=== PATIENT | female | born 1975 | race Caucasian/White ===

== ENCOUNTER 2017-10-06 23:17 | Emergency (ER) | payer OTHER ==
[~2017-10-06] VITALS: Ht 167.6 cm; Wt 94.8 kg
[2017-10-06] MEDS ORDERED: METOPROLOL SUCC25 MG PO (23:38)
== END 2017-10-07 01:26 | disposition home or self-care (01) ==
LOC: ED 23:17
DX: K91.840 Postprocedural hemorrhage of a digestive system organ or structure following a digestive system procedure (principal); I10 Essential (primary) hypertension; E11.9 Type 2 diabetes mellitus without complications; F17.200 Nicotine dependence, unspecified, uncomplicated; Z91.030 Bee allergy status; Z88.0 Allergy status to penicillin; Z88.1 Allergy status to other antibiotic agents; Z79.899 Other long term (current) drug therapy; Z88.2 Allergy status to sulfonamides
CPT/HCPCS: 36415; 85025; 85610; 85730; 99283

== ENCOUNTER 2020-10-03 18:23 | Observation (INO) | payer OTHER ==
[~2020-10-03] VITALS: Ht 167.6 cm; Wt 105.5 kg
[~2020-10-03 18:23] MED LIST: METOPROLOL SUCC25 MG PO
[2020-10-03] MEDS ORDERED: SILVER SULFADIA50 GM (19:15)
--- NOTE | 2020-10-04 00:42 | NUR ---
PT ARRIVED AT 2356. SHE IS A&O, WITH VS WNL. IS AT BEDSIDE. COMPLETED ADMISSION HX WITH PT. PT NPO AT THIS TIME AND HAS SWABS FOR DRY MOUTH. SHE HAS A BLOUS INFUSING AT THIS TIME. PT DENIES FURTHER NEEDS. CALL LIGHT IS CLOSE.
--- NOTE | 2020-10-04 00:45 | NUR ---
SCHOOL SECRETARYALFREDO NEWTON IN ROOM AND ADMITTING pt, VSS. DR ROSARIO IN ROOM COMPLETING ASSESSMENT. VERBAL ORDER READ BACK FROM DR ROSARIO TO START X1 LITER BOLUS OF LR AND INFUSE OVER 1 HOUR. BOLUS INFUSING, IV SITE WNL. BRISK BLOOD RETURN NOTED. pt REPORTS TOLERABLE 5-6/10 PAIN, DENIES NEED FOR PAIN MEDICATION OF ANY KIND. DENIES NAUSEA. BOWEL TONES ACTIVE, pt REMAINS NPO. BED MADE FOR , CALL LIGHT IN REACH OF pt. CONSENT SIGNATURE WITNESSED AND ON FRONT OF CHART. NO FURTHER NEEDS, CALL LIGHT IN REACH.
--- NOTE | 2020-10-04 01:30 | NUR ---
RT KB IN ROOM WITH pt COMPLETING PRE-OP EKG.
--- NOTE | 2020-10-04 04:14 | NUR ---
IN ROOM TO ROUND ON pt, ASSESSMENT COMPLETE. NO NEW BLEEDING NOTED FROM PREVIOUS PLACED GAUZE, WILL CONTINUE TO MONITOR. NO NEW SHADOWING TO ABD MIDLINE DRESSING. IV SITE WNL, IV FLUIDS CONTINUE TO INFUSE PER MD ORDERS. CPOX IN PLACE, 2LNC ON, O2 SAT MID TO UPPER 90'S, HR 60'S. pt AWOKE BRIEFLY TO VOICE, DENIES NEEDS OR CONCERNS AT THIS TIME. LIAISON PLANNER BUTTON WITHIN REACH. CALL LIGHT IN REACH.
--- NOTE | 2020-10-04 04:22 | NUR ---
pt RESTING QUIETLY IN BED WITH EYES CLOSED, RR EVEN AND UNLABORED. NO DISTRESS NOTED, IV FLUIDS INFUSING PER MD ORDERS. REMAINS IN ROOM. CALL LIGHT IN REACH.
--- NOTE | 2020-10-04 06:39 | NUR ---
IN TO ASSIST PT WITH PRE OP WIPEDOWN, PT UP TO VOID, BED LINENS CHANGED, PT REMOVING JEWELERY AT THIS TIME, NO FURTHER NEEDS
--- NOTE | 2020-10-04 06:55 | NUR ---
SCHEDULED IV ABX INFUSING PER MD ORDERS, IV SITE WNL. NO FURTHER NEEDS, CALL LIGHT IN REACH. ALSO IN ROOM.
--- NOTE | 2020-10-04 07:00 | NUR ---
pt REPORTS ALLERGY TO RANITIDINE, CAUSING "THROAT TO CLOSE". pt THINKS SHE HAS TAKEN PEPCID BEFORE AND HAS BEEN FINE. RANITIDINE ADDED TO ALLERGY LIST BY ANALYSIS SPECIALISTALFREDO NEWTON, DELORIS YADAV TO CLARIFY POSSIBLE ALLERGY WITH PHARMACY AND MD.
--- NOTE | 2020-10-04 07:30 | NUR ---
REPORT RECEIVED FROM MARCO MEAT GRADER RN. PT REPORTEDLY ALLERGIC TO RANITIDINE AND IS CURRENTLY SCHEDULED TO HAVE FAMITODINE TODAY. WILL CLARIFY W/ PHARMACY.
--- NOTE | 2020-10-04 08:00 | NUR ---
PATIENT AWAKE IN BED, SCD PROVIDED AND PLACED ON LEGS. CALL LIGHT IN REACH
--- NOTE | 2020-10-04 08:30 | NUR ---
PT WIPEDOWN COMPLETED AND GOWN/LINENS CHANGED. PRE OP CHECKLIST COMPLETED BY EXCHANGE CONSULTANT. SCD'S ON. PT AWAITING SURGERY.
--- NOTE | 2020-10-04 09:00 | NUR ---
PT REFUSED PEPCID THIS AM D/T BEING WORRIED OF POTENTIAL REACTION SHE HAS HAD ANAPHYLACTIC REACTION TO RANITIDINE IN THE PAST. MEDICATION HELD.
--- NOTE | 2020-10-04 09:30 | NUR ---
PT GIVEN HEPARIN INJECTION IN LLQ PRIOR TO DEPARTING FOR SURGERY W/ OBDULIA RN. PT VERBALIZED UNDERSTANDING OF NEED FOR MEDICATION. LR INFUSING ON STRAIGHT TUBING.
--- NOTE | 2020-10-04 11:59 | NUR ---
10/04/20 1159 Cassidy Erwin 1153 PATIENT ARRIVES TO PACU UNRESPONSIVE TO PAIN. ORAL AIRWAY IN PLACE. RESP EVEN AND UNLABORED, MASK AT 6 LITERS. 1157 PATIENT COUGH, REACHING FOR ORAL AIRWAY, AIRWAY REMOVED. MASK CONTINUED AT 6 LITERS. 1158 PATIENT PULLING AT OXYGEN MASK, HAS A DIFFICULT TIME FOLLOWING COMMANDS. RESP EVEN AND UNLABORED, SATS 100% ON OXYGEN. WILL REMOVE MASK.
--- NOTE | 2020-10-04 12:22 | NUR ---
ALFREDO YADAV INFORMED ME THAT PT IS IN SURGERY. WILL FOLLOW
--- NOTE | 2020-10-04 13:30 | NUR ---
Pt lives in [place] in an apartment with her spouse. She has 18 steps into her home. She works as a underwriter mortgage loan. Plans on dc to home with her spouse and he will be home until the 15 of October. They are financially sound per her spouse. Both deny any needs for dc.
--- NOTE | 2020-10-04 14:45 | NUR ---
ASSESSED PT AT 1415 FOR HOURLY POST OP VITALS AND PT WAS VERY DROWSY AND SLOW TO RESPOND. ONLY RESPONSIVE TO PAINFUL STIMULI, BP 116/55 (77), HR 63, RR 12, 97.7, SP02 SATS 97% ON ROOM AIR. PT UNABLE TO MOVE ARMS AND C/O NUMBNESS & TINGLING IN ARMS AND LEGS. PT ALSO C/O HEADACHE AND LEFT FACIAL DROOP NOTED. PUPILS ARE PERRLA. FILLING STATION LABORER JANIS AND DR ROSARIO NOTIFIED AND ENTERED ROOM. DR ROSARIO AFTER DOING FURTHER ASSESSMENT ORDERED 0.4 MG NARCAN WHICH WAS GIVEN. PT THEN MORE ALERT AND AWAKE W/IN 1 MIN OF RECEIVING NARCAN. NO LONGER HAS FACIAL DROOP, NOW SYMMETRIC. LENS ASSISTANT STRENGTH ARE EQUAL. PT NOW DENIES NUMBNESS & TINGLING IN HANDS, CONTINUES IN FEET. PT IS ORIENTED X4. STATES SHE FEELS "SORE AND DIZZY." REFUSING ANY TYLENOL OR IBUPROFEN AT THIS TIME FOR 5/10 PAIN. CALL LIGHT IN ROOM AND BACK TO BEDSIDE.
--- NOTE | 2020-10-04 15:30 | NUR ---
PATIENT AWAKE IN BED, IN ROOM. 2PA PATIENT TO BSC, TOLERATED WELL, BUT WAS A BIT DIZZY. LINENS CHANGED, CALL LIGHT IN REACH
--- NOTE | 2020-10-04 15:59 | NUR ---
CLARIFIED PATIENT FOOD PREFERENCES FOR DIETARY STAFF: PATIENT STATES HE DOES HAVE A SENSITIVITY TO GARLIC - IT UPSETS HER STOMACH. OTHERWISE, SHE PREFERS MORE OF A LOW-SODIUM, NO ADDED SUGAR DIET. SHE DOES NOT EAT MEAT, VERY SELDOM EATS EGGS, AND VERY LITTLE DAIRY. I MENTIONED THAT WE DO HAVE SALMON AND CHICKEN, THEN WAS INFORMED BY THE DIETARY STAFF THAT THE HERB CRAIG HAS GARLIC IN IT. LET PATIENT KNOW THAT WE ALSO HAVE SOY MILK AND ALMOND MILK IF SHE LIKES ANY OF THOSE. SHE DOES NOT HAVE MUCH OF AN APPETITE DUE TO HAVING SURGERY FOR APPENDICITIS THIS MORNING. LET DIETARY STAFF KNOW OF PATIENT PREFERENCES AND THAT THEY CAN HELP HER ORDER MEALS.
--- NOTE | 2020-10-04 16:00 | NUR ---
PT UP TO BSC TO VOID. LINENS CHANGED PT HAD EPISODE OF EMESIS 200 MLS WHICH CAUSED SMALL INCONTINENCE SHE REPORTS. PT BACK TO BED, REPORTS FEELING SOME ABD DISCOMFORT BUT IS REFUSING TYLENOL & IBUPROFEN, STATES SHE CAN HANDLE THIS PAIN AND DOES NOT WANT ANY MEDICATION. CALL LIGHT IN REACH AND STATES SHE WILL CALL FOR FURTHER NEEDS.
--- NOTE | 2020-10-04 18:15 | NUR ---
PT NAUSEA AND VOMETING AT THIS TIME, REFUSED ZOFRAN AT THIS TIME. PT CLEANED UP BRUSHED TEETH AND WILL KEEP AN EYE ON HER. PT IS FEELING BETTER AFTER BRUSHING TEETH.
--- NOTE | 2020-10-04 18:31 | NUR ---
ANSWERED CALL LIGHT, PATIENT HAS 300ML BILE IN EMESIS BAG. NEW GOWN AND PILLOWCASE PROVIDED. PATIENT BRUSHED TEETH AND USED MOUTHWASH. CALL LIGHT IN REACH, NO OTHER NEEDS AT THIS TIME
--- NOTE | 2020-10-04 19:39 | NUR ---
PT HAVING ANOTHER EPISODE OF 200 MLS BILE COLORED EMESIS, ALSO C/O OF RIGHT SHOULDER PAIN THAT IS PINPOINT AND DOES NOT RADIATE. PT ALSO DIZZY W/ MOVEMENT AND HAS HX OF VERTIGO. VITAL SIGNS ARE CURRENTLY STABLE. PT REFUSING ANTIEMETICS. VERIFIED W/ TELE PHARMACY THAT ZOFRAN IS IN DIFFERENT CLASS OF MEDICATIONS THAN PHENERGAN PT WAS FEARUL OF REACTION. PT STATES SHE IS OK WITH TAKING IV ZOFRAN. DR ROSARIO CALLED AND UPDATED ON ALL THE ABOVE. ORDERS TO CONTINUE TO MONITOR. PASSED ALONG IN REPORT TO MARCO AGRICULTURAL PRODUCE COMMISSION AGENT RN. PT OTHERWISE CONTINUES TO BE ALERT AND ORIENTED. SLIGHTLY SHAKY AT TIMES AFTER EMESIS. AT BEDSIDE PROVIDING COMFORT.
--- NOTE | 2020-10-04 20:00 | NUR ---
IN ROOM TO EDUCATE pt ON USE OF ZOFRAN MEDICATION. pt INITIALLY VERY HESITANT TO TAKE MEDICATION, RECENT EMESIS NOTED WITH SHIFT CHANGE. pt REPORTING RIGHT PECTORAL PAIN THAT IMPROVES WITH PUSHING ON BACK OF RIGHT SHOULDER BLADE. pt REPORTS THIS PAIN INTERFERRING WITH ABILITY TO TAKE DEEP BREATHS. ALFREDO MENDOZA UPDATED DR ROSARIO, PER ALFREDO YADAV MD FEELS PAIN IS RELATED TO GAS PAIN FROM SURGERY. pt AND FAMILY UPDATED ON CONVERSATION DAYSHIFT RN HAD WITH MD. HEAT PACK PROVIDED, pt REFUSES PRN PAIN MEDICATIONS. NO RESPIRATORY DISTRESS NOTED AT THIS TIME, OCCASSIONAL FACIAL GRIMACING NOTED. AFTER A LENGTHY DISCUSSION OF USE OF ZOFRAN, pt FINALLY AGREES TO TAKE MEDICATION, IN ROOM. pt STATES, "I NEED TO TELL YOU SOMETHING. 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 pt CONTINUES BY STATING, "I JUST DON'T WANT TO TAKE EXTRA MEDICATIONS AND HAVE ALL THESE CHEMICALS IN MY BODY AND REACTING". THERAPEUTIC COMMUNICATION PROVIDED ON RECOVERY, WILL CONTINUE TO MONITOR. CALL LIGHT IN REACH, LIABILITY CLAIMS EXAMINERALFREDO ATKINS.
--- NOTE | 2020-10-04 21:40 | NUR ---
ASSESSMENT COMPLETE, EVENING MEDICATIONS GIVEN, SEE EMAR. pt REFUSES IV PEPCID. IV ABX INFUSING PER MD ORDERS, SITE WNL. pt STATES, "I GOT SOME GOOD SLEEP AFTER YOU GAVE ME THAT ZOFRAN". pt DID NOT RATE PAIN ON PAIN SCALE, BUT REPORTS PAIN IS TOLERABLE. RR EVEN AND UNLABORED, NO DISTRESS NOTED. LAP SITES X3 WNL, STERI STRIPS IN PLACE WITH SCANT SEROSANGINEOUS SHADOWING. SCD'S IN PLACE, CALL LIGHT IN REACH. pt DENIES NEED TO VOID, WILL ALLOW TO REST AND MONITOR. REMAINS IN ROOM FOR EMOTIONAL SUPPORT.
--- NOTE | 2020-10-04 22:16 | NUR ---
IN TO GET VITALS, PT DENIES NEEDING TO VOID, SHE STATE SHE WANTS TO TRY LATER AND GET SOME REST, RN INFORMED, NO FURTHER NEEDS
--- NOTE | 2020-10-04 23:37 | NUR ---
IN TO PUT PT ON CPOX
--- NOTE | 2020-10-05 01:19 | NUR ---
pt RECENTLY UP TO VOID WITH HELP FROM CHRISTOPHER GONZALEZ. 300MLS OUTPUT NOTED PER DOCUMENT CONTROL CLERK, IN ROOM TO ASSESS. pt AWAKE AND RESTING IN BED, CPOX IN PLACE. O2 SAT 93% ON RA, HR WNL. pt REPORTS SHE FELT A LITTLE DIZZY WHEN VOIDING AND SHE REMINDED HERSELF ON IMPORTANCE OF MAKING SLOW POSITION CHANGES. DENIES DIZZINESS AT THIS TIME ONCE BACK IN BED. pt REPORTS TOLERABLE 6/10 PAIN IN ABD AND BILATERAL SHOULDER BLADES. NO RESPIRATORY DISTRESS NOTED, pt DECLINES NEED FOR PAIN MEDICATION. pt STATES, "I DIDN'T REALIZE JUST HOW MUCH YOU USE YOUR ABDOMINAL MUSCLES". EDUCATION PROVIDED ON USING IS AND SPLINTING ABD WHEN COUGHING, DEEP BREATHING, AND GETTING OOB, pt VERBALIZED UNDERSTANDING. SCD'S IN PLACE, pt DENIES FURTHER NEEDS. CALL LIGHT IN REACH, VSS.
--- NOTE | 2020-10-05 01:19 | NUR ---
IN TO GET PT UP TO VOID, AMT REPORTED TO RN, VITALS DONE, NO FURTHER NEEDS SCDS AND CPOX IN PLACE, ICE WATER REFILLED
--- NOTE | 2020-10-05 04:18 | NUR ---
NEW BAG IV FLUIDS HUNG AND INFUSING AT 75MLS/HR, SITE WNL. pt RESTING IN BED WITH EYES CLOSED, RR EVEN AND UNLABORED, RR APPROX 18. IV SITE WNL. ALSO IN ROOM, CALL LIGHT IN REACH.
--- NOTE | 2020-10-05 05:03 | NUR ---
VSS, pt AWOKE TO VOICE. DENIES NEED TO VOID AT THIS TIME, WILL RETURN BEFORE SHIFT CHANGE. ASSESSMENT COMPLETE, NO NEW CHANGES OR CONCERNS. pt REPORTS TOLERABLE 5/10 PAIN IN ABD, DENIES NEED FOR PAIN MEDICATIONS. LAP SITES X3 UNCHANGED SINCE START OF SHIFT. NO FURTHER NEEDS, CALL LIGHT IN REACH.
--- NOTE | 2020-10-05 05:47 | NUR ---
pt ANXIOUS AND VOICED CONCERNS REGARDING POST-OP AND RECOVERY, REPORTED TO SUPERVISOR ELECTRONIC TESTING OF HX OF METH USE 7+ YEARS AGO, EDUCATION AND THERAPEUTIC COMMUNICATION PROVIDED. EMESIS X1 AT SHIFT CHANGE, RESOLVED WITH ZOFRAN X1. NO ADDITIONAL EMESIS NOTED. PAIN TOLERABLE THROUGH SHIFT, 5-6/10 IN ABD, RADIATING TO RIGHT PECTORAL MUSCLE, DR ROSARIO AWARE. REFUSES PAIN MEDICATIONS OF ALL KIND. VSS, ON RA. IV FLUIDS AND IV ABX INFUSING PER MD ORDERS, SITE WNL. SBA TO BSC, pt AGREES TO WORK ON ADDITIONAL AMULATION TODAY, CALLS APPROPRIATELY. REGULAR DIET, ATE APPROX 30% OF DINNER, BOWEL TONES ACTIVE. VOIDING QS. IN ROOM AND ENCOURAGING TOWARDS pt.
--- NOTE | 2020-10-05 06:26 | NUR ---
SCHEDULED IV ABX INFUSING, IV SITE WNL. CPOX ALSO IN PLACE, O2 SAT 89-90%, 1LNC PLACED, O2 SATS SUSTAINING LOW TO MID 90'S. CALL LIGHT IN REACH.
--- NOTE | 2020-10-05 09:45 | NUR ---
MORNING ASSESSMENT COMPLETE. NO CHANGE TO X3 LAPSITES, STERI STRIPES IN PLACE. VSS. PT C/O 09/19 ABD PAIN YET REFUSING TYLENOL OR TORADOL. LUNG SOUNDS ARE CLEAR. BOWEL TONES ARE ACTIVE. PT IS TOLERATING REGULAR DIET MODERATELY WELL, DENIES NAUSEA AFTER BREAKFAST THIS AM. HEPARIN INJECTION GIVEN, THOUGH PT REFUSED PEPCID. WANTS TO GO HOME TODAY. EDUCATED THAT SHE WILL NEED TO BED OOB AND WALKING TODAY, THAT IT WILL STIMULATE BOWEL FUNCTION AND DECREASE RISK FOR PNEUMONIA POST OP. PT VERBALIZED UNDERSTANDING. UP TO BATHROOM W/ FWW TO VOID. BACK TO BED STATING SHE FEELS DIZZY AND LIGHTHEADED AND NOT READY TO WALK HALLS YET. BP STABLE. WILL CHECK BACK ABOUT WALK LATER.
--- NOTE | 2020-10-05 12:21 | NUR ---
TO BEDSIDE TO ADMISNTER PROTONIX. PT IS APREHENSIVE ABOUT TAKING MEDICAITON D/T PREVIOUS ALLERGIES TO OTHER PPI'S. WRITEN EDUCATION PROVIDED AND VERBAL EDUCATION PROVIDED. PT WOULD LIKE TO THINK ABOUT IT AND DECIDED LATER IF SHE WANTS TO TAKE MEDICAION. ALL QUESTIONS ANSWERED.
--- NOTE | 2020-10-05 14:02 | EKG ---
[facility] [address] [facility] [place], [place] [address] Signed Normal sinus rhythm Normal ECG No previous ECGs available Confirmed by ELIAN MCKEON DO ([id number]) on 10/05/2020 2:02:22 PM Electronically Signed By: ELIAN MCKEON DO 10/05/20 1402 PATIENT NAME: VERA ALCANTAR Electrocardiogram DATE OF : 75 PHYSICIAN: ELIAN MCKEON DO REPORT #: [id number] REPORT IS CONFIDENTIAL AND NOT TO BE RELEASED WITHOUT AUTHORIZATION
--- NOTE | 2020-10-05 15:00 | NUR ---
PT ENCOURAGED TO AMBULATED SEVERAL TIMES TODAY. OFFERED TYLENOL AND RELUCTANT TO TAKE ANY STATING "I REALLY DON'T WANT ANYMORE PILLS AND CHEMICALS IN MY BODY" THOUGH SHE REPORTS BEING IN 7/10 PAIN AND HAS BEEN RELUCTANT TO WALK D/T ABD PAIN. AFTER THOROUGH EDUCATION AND ENCOURAGEMENT, SHE WAS WILLING TO TAKE 1 500 MG TABLET INSTEAD OF THE FULL 1000 MG DOSE. PT REQUESTING TO WAIT 30 MIN TO WALK SO TYLENOL CAN KICK IN.
--- NOTE | 2020-10-05 16:30 | NUR ---
IN TO GO FOR WALK WITH PT WHO IS SITTING IN BED AND APPEARS MORE RELAXED AND PLEASANT THAN USUAL. WHEN ASKED IF THEY TYLENOL HELPED WITH HER PAIN, SHE STATES "NO IT JUST MADE ME FEEL MORE LOOPY AND ZONKED, I'M GLAD I DIDN'T TAKE THE FULL DOSE" EDUCATED PT THAT TYLENOL HAS NO SEDATING OR NARCOTIC COMPONENTS. PT STATES THAT SHE HAS REACTIONS TO MOST MEDICATIONS THIS WAY, "IT'S THE CHEMICALS IN THEM THAT TAKE IT OUT OF ME." PT WILLING TO TRY WALKING THE HALLS. UP W/ FWW, FOLLOWING W/ WHEELCHAIR. PT TOOK APPROX 30 MIN TO AMBULATE FROM ROOM DOWN TO 2 ROOMS AWAY AND BACK. SITTING UP WITH CHAIR, PT REPORTS SHE IS MORE COMFORTABLE AT REST. PT DID C/O MULTIPLE DIFFERENT PAINS INCLUDING SHARP ABD PAIN, EDUCATED AGAIN THAT SHARP PAINS CAN BE RELATED TO GAS PAIN IN BOWELS AND THAT WALKING MORE FREQUENTLY WILL HELP STIMULATE BOWELS TO RELEASE GAS. PT EXHIBITED MINIMAL KNOWLEDGE, CONTINUE TO REINFORCE. SALINE LOCKED. CALL LIGHT IN REACH. DINNER ORDERED.
--- NOTE | 2020-10-05 18:21 | NUR ---
PATIENT UP IN CHAIR FOR DINNER. VITALS AND I&OS CHARTED. IN ROOM. PATIENT HAS NO VOID FOR LAST FEW HOURS, RN AWARE. CALL LIGHT IN REACH
--- NOTE | 2020-10-05 19:00 | NUR ---
PT UP TO BATHROOM WITH ASSISTANCE OF TOOL PUSHER TO VOID 400 MLS. UP TO WALK SEGURA 1 PA W/ FWW. UPDATED DR. ROSARIO ON PT DAY AND CURRENT STATUS. WILL CONTINUE TO ENCOURAGE PT TO AMBULATE SEGURA AND TAKE TYLENOL AND NEEDED FOR ABD PAIN AND ACTIVITY.
--- NOTE | 2020-10-05 19:15 | NUR ---
SHIFT REPORT RECEIVED FROM DAYSFLFT ALFREDO YADAV AT BEDSIDE. pt UP AT DOORWAY AND AMBULATING WITH MARINE EXTENSION AGENT LISA, ALSO WITH pt. pt APPEARS TO BE IN GOOD MOOD AND JOKING. DR ROSARIO MADE AWARE OF pt's HX OF METH USE 7+YEARS AGO, NO NEW ORDERS.
--- NOTE | 2020-10-05 19:30 | NUR ---
TOOK PT UP TO AMBU IN THE SEGURA, FROM 112 [address] TO THE END OF THE LOWER RN STATION AND BACK, PT MADDISON WELL WITH MINIMAL DIZZYNESS, FOLLOWED WITH THE WHEELCHAIR IF NEEDED, PT BACK IN BED AT THIS TIME, ICE WATER PROVIDED, SCDS IN PLACE, NO FURTHER NEEDS
--- NOTE | 2020-10-05 20:39 | NUR ---
vital done, ice water filled
--- NOTE | 2020-10-05 21:15 | NUR ---
ASSESSMENT COMPLETE, VSS. pt A/OX4, REPORTS 6/10 DULL ACHY PAIN IN RIGHT SHOULDER/SHOULDER BLADE, STATING, "I THINK ALL THE VOMITING MADE ME TWIST OR PINCH SOMETHING". pt REPORTS 4/10 SHARP SUPERFICIAL PAIN NEAR UMBILICUS. NO DEFORMITIES NOTED IN EITHER LOCATION, 500 MG TYLENOL GIVEN. pt EDUCATED ON USE OF TORADOL, pt DECLINED. LAP SITES X3 WNL, STERI STRIPS IN PLACE, SCANT DRY SEROSANGUINEOUS SHADOWING. DENIES NAUSEA OR PASSING GAS, BOWEL TONES ACTIVE. CALL LIGHT IN REACH, IN ROOM.
--- NOTE | 2020-10-05 22:30 | NUR ---
pt RESTING QUIETLY IN BED, NO NEEDS VERBALIZED. CALL LIGHT IN REACH, RR EVEN AND UNLABORED.
--- NOTE | 2020-10-06 02:15 | NUR ---
pt RESTING IN BED WITH EYES CLOSED, RR EVEN AND UNLABORED. NO DISTRESS NOTED, CALL LIGHT IN REACH. ALSO IN ROOM, SLEEPING ON COUCH.
--- NOTE | 2020-10-06 06:12 | NUR ---
VSS, pt UP SBA WITH FWW TO VOID AND BACK IN BED. MOVES SLOW, STEADY ON FEET. FACIAL GRIMACING NOTED, pt REPORTS 7/10 ABD PAIN, TYLENOL OFFERED AND ACCEPTED. pt DECLINES FULL DOSE, SEE EMAR. ASSESSMENT DONE, FRESH WATER AT BEDSIDE. CALL LIGHT IN REACH. SCD'S ON.
--- NOTE | 2020-10-06 07:30 | NUR ---
Report received from Pita FUENTES. Pt visualized resting in bed with eyes closed, breathing even and unlabored, no needs identified at this time.
--- NOTE | 2020-10-06 08:46 | NUR ---
VITALS AND I&OS CHARTED. PATIENT SITTING UP FOR BREAKFAST.
--- NOTE | 2020-10-06 09:23 | NUR ---
Scheduled heparin administered, pt denies protonix at this time. She also states she is having pain but denies wanting any PRN medications, this RN suggested ambulation, ice pack, pt refuses these options. This RN encouraged pt to research and consider Toradol for potential use, pt agrees. Made plan for ambulation later in day. Bowel tones hypoactive. Steri strips intact. Pt states no needs, call light in reach
--- NOTE | 2020-10-06 10:15 | NUR ---
PATIENT CALLED FOR ASSISTANCE TO BR. SBA, PATIENT AMBULATED WELL, BUT APPREHENSIVE TO MOVE MUCH. THIS INFORMATION TECHNOLOGY ADVISOR ENCOURANGING PATIENT. PATIENT HAD SMALL SOFT BM, CHANGED GOWN, TALKED ABOUT A SHOWER TODAY. BACK TO BED, CALL LIGHT IN REACH
[2020-10-06] MEDS ORDERED: ACETAMINOPHEN500 MG PO (11:02)
--- NOTE | 2020-10-06 11:43 | HP ---
[facility] [address] [place], [place] [address] Signed ADMISSION DATE: 10/03/2020 REASON FOR ADMISSION: Acute appendicitis. HISTORY OF PRESENT ILLNESS: This obese (BMI of 37.5) 45-year-old white woman presented to the emergency room where she was evaluated by Dr. Mujica. She was found to have significant tenderness of the abdomen and evaluation included a CT scan which confirmed appendicitis. Some delay in obtaining laboratory studies was noted as there is a lab transition locally at the hospital. She was noted to have a white count of 15.6, platelets 294. Chem profile reasonably normal except for a potassium of 3.5. Her beta-hCG was negative. Urinalysis showed moderate blood, RBCs 5 to 10 per high-power field, white cells 0 to 3 and COVID PCR test negative. She is admitted for further evaluation and care. Her symptoms began yesterday last night and now is a bit more than 24 hours since her symptoms began. She had increased pain upon jarring of the abdomen. She has had nausea, but no vomiting and no diarrhea or fever or chills that she knows of. 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 PAST MEDICAL HISTORY: Includes hypertension, type 2 diabetes, history of stomach ulcer and "sciatica." The patient does smoke every day. SURGICAL HISTORY: Includes cholecystectomy, tonsillectomy and oral surgery. ALLERGIES: She has numerous listed allergies including beestings, penicillin (rash throat swelling, sulfa medication (fever and rash). Aloe vera, rash. Cephalexin, unknown symptoms. Diphenhydramine, throat swelling. Erythromycin, rash and vomiting. Lamictal, vomiting. Promethazine, psychotic episode 2018 and Geodon, also psychotic episode. SOCIAL HISTORY: She is and she is employed. They have no children. REVIEW OF SYSTEMS: She denies any shortness of breath or chest pain. She has pain and apparently has been refusing pain medication in the emergency room. She has no hematemesis or blood per Electronically Signed By: PAVEL ROSARIO MD 10/06/20 1143 PATIENT NAME: VERA ALCANTAR HISTORY AND PHYSICAL DATE OF : 75 REPORT #: [id number] PHYSICIAN: PAVEL ROSARIO MD PCP: David Denson DO REPORT IS CONFIDENTIAL AND NOT TO BE RELEASED WITHOUT AUTHORIZATION [facility] [address] [place], [place] [address] Signed rectum. PHYSICAL EXAMINATION: GENERAL: This is an obese white woman who looks to be in moderate discomfort. HEENT: Mucous membranes are dry. Trachea is midline. CHEST: Clear. HEART: Regular without murmur. ABDOMEN: Broad and obese. She has generalized tenderness throughout most dominantly in the right lower quadrant where there are peritoneal signs. EXTREMITIES: Show no clubbing, cyanosis, or edema. LABORATORY STUDIES: Show white count of 15.6, hematocrit 41.6, platelets 294,000. Urinalysis as previously described. I have reviewed the CT scan in detail. This does show probable appendicitis, but no evidence of abscess or perforation. There does appear to be a 24 mm low-density nodule of the left adrenal gland consistent with an adenoma. The appendix is noted to be thick walled and dilated located in the iliac fossa with no evidence of perforation. The left ovary has a 3 cm cyst. The right ovary has 2 cm cyst. ASSESSMENT: The patient has acute appendicitis. Discussed with the patient and her the pathophysiology of this problem and recommendation of treatment to include appendectomy, preferred by laparoscopic approach. It is quite notable that the patient does have episodes of left chest pain from [id number] and left arm pain, though she is uncertain if this is able to be distinguished from her well-known and established underlying reflux disease. We will get an EKG nevertheless. She needs additional fluid resuscitation as her mucous membranes are slightly dry. Antibiotic clindamycin and Flagyl will be initiated based on her allergy profile prohibiting penicillin and even cephalosporins based on her allergy profile. The risk of bleeding, infection, need for open procedure and other unforeseen complications including cardiopulmonary problems was reviewed in detail. She and her understand and wished to proceed. As it is well past midnight at this point, we will continue with efforts at fluid resuscitation, pain control, anticipating operative intervention tomorrow. Electronically Signed By: PAVEL ROSARIO MD 10/06/20 1143 PATIENT NAME: VERA ALCANTAR HISTORY AND PHYSICAL DATE OF : 75 REPORT #: [id number] PHYSICIAN: PAVEL ROSARIO MD PCP: David Denson DO REPORT IS CONFIDENTIAL AND NOT TO BE RELEASED WITHOUT AUTHORIZATION [facility] [address] [place], [place] [address] Signed Pavel Rosario MD JM/MODL /[id number] cc: Dr. Pavel Mujica Copies: ~ Electronically Signed By: PAVEL ROSARIO MD 10/06/20 1143 PATIENT NAME: VERA ALCANTAR HISTORY AND PHYSICAL DATE OF : 75 REPORT #: [id number] PHYSICIAN: PAVEL ROSARIO MD PCP: David Denson DO REPORT IS CONFIDENTIAL AND NOT TO BE RELEASED WITHOUT AUTHORIZATION
--- NOTE | 2020-10-06 11:43 | OR ---
[facility] [address], [place] [address] Signed DATE OF OPERATION: 10/04/2020 SURGEON: Blessing Rosario MD PREOPERATIVE DIAGNOSES: 1. Acute appendicitis. 2. Morbid obesity. POSTOPERATIVE DIAGNOSES: 1. Acute appendicitis. 2. Morbid obesity. PROCEDURE: Laparoscopic appendectomy and lysis of adhesions. ANESTHESIA: General endotracheal, Carter Radha, AMBULATORY CARE COORDINATOR and local 20 mL of 0.25% Marcaine with epinephrine. INDICATION: This 45-year-old white woman is rather morbidly obese, though has lost 200 pounds over time due to dietary management and so forth. She has had cholecystectomy in the past. She presented to the hospital yesterday with severe right lower abdominal pain consistent with appendicitis. She was admitted late in the evening after CT scan confirmed appendicitis. She has been given intravenous antibiotic clindamycin and Flagyl based on her allergy profile and is now to undergo appendectomy preferred by laparoscopic approach. The risk of bleeding, infection, need for open procedure and other unforeseen complications was reviewed in detail. She understands and wished to proceed. FINDINGS: She was quite morbidly obese still but appendectomy was performed without complication. The appendix was quite markedly inflamed but without sign of actual perforation. DESCRIPTION OF PROCEDURE: The patient was brought to the operating room, and given a general endotracheal anesthetic. Preoperative antibiotic clindamycin and Flagyl had been given. Sequential compression device stockings were used and heparin subcutaneously administered. After satisfactory general endotracheal anesthesia, the abdomen was prepared with a chlorhexidine solution and draped sterilely. A supraumbilical incision was made and Electronically Signed By: BLESSING ROSARIO MD 10/06/20 1143 PATIENT NAME: VERA ALCANTAR OPERATIVE REPORT DATE OF : 75 REPORT #: [id number] PHYSICIAN: BLESSING ROSARIO MD PCP: David Denson DO REPORT IS CONFIDENTIAL AND NOT TO BE RELEASED WITHOUT AUTHORIZATION [facility] [address], [place] [address] Signed using an open Maylin cannula technique, the abdomen was entered and pneumoperitoneum achieved to a level of 14 mmHg with carbon dioxide gas. Intraabdominal inspection shows no sign of ascites or carcinomatosis, but there was some inflammatory fluid in the right lower abdomen. The liver appeared reasonably normal. There were adhesions in the upper abdomen related to prior surgery. A 5 mm right lower quadrant port was placed and using Endo Kofi, the adhesions of the upper abdomen were freed allowing for a window for which to place another trocar. A 12 mm epigastric port was placed allowing for replacement of the camera to that site. With two hand manipulation, the right lower abdomen was more fully examined showing a markedly inflamed appendix with some omental adhesions to it. The cecum was rolled to the midline a bit more exposing the appendix well. The appendix was grasped and ultimately a window created between the appendix and the cecum using an Endo-EMELY stapling device. The base of the appendix transected, flushed with the cecum. The mesentery of the appendix was quite thickened and was incised with electrocautery allowing for application of approximately 3 loads of the Endo-EMELY stapling device with vascular load. The appendix was placed in an endobag and extracted through the supraumbilical port site without problem. Irrigation was undertaken at the site showing no sign of bleeding or other problems. Once irrigation fluid was suctioned free, the trocars were removed under direct visualization showing no sign of bleeding. The infraumbilical fascial incision was reapproximated with interrupted 0 Vicryl suture as well as a running 0 PDS suture. A 20 mL of 0.25% Marcaine was injected locally. Steri-Strips were applied. The patient was ultimately extubated and transferred to the recovery room in good condition having suffered no complications. Sponge, needle, and instrument counts were reported as correct x3. MD JHONY Shahid/MODL /[id number] cc: Ilir Denson DO Copies: ILIR BAEZ Electronically Signed By: BLESSING ROSARIO MD 10/06/20 1143 PATIENT NAME: VERA ALCANTAR OPERATIVE REPORT DATE OF : 75 REPORT #: [id number] PHYSICIAN: BLESSING ROSARIO MD PCP: David Denson DO REPORT IS CONFIDENTIAL AND NOT TO BE RELEASED WITHOUT AUTHORIZATION [facility] [address] [place] [address] [place] [address] Signed David Denson DO ~ Electronically Signed By: BLESSING ROSARIO MD 10/06/20 1143 PATIENT NAME: VERA ALCANTAR OPERATIVE REPORT DATE OF : 75 REPORT #: [id number] PHYSICIAN: BLESSING ROSARIO MD PCP: David Denson DO REPORT IS CONFIDENTIAL AND NOT TO BE RELEASED WITHOUT AUTHORIZATION
--- NOTE | 2020-10-06 12:00 | NUR ---
Worked with pt on ambulation, walking up and down stairs in PT room. pt tolerated well with SBA, using FWW. attentive to pt and engaged in care. Discharge teaching provided, pt verbalizes understanding.
--- NOTE | 2020-10-06 12:19 | NUR ---
DISCHARGE VITALS COMPLETED. IV DC'D AND WNL. PT EDUCATED ON PRESSURE DRESSING AND WHEN TO REMOVE.
--- NOTE | 2020-10-09 12:44 | DS ---
[facility] [address] [place], [place] [address] Signed ADMISSION DATE: 10/03/2020 DISCHARGE DATE: 10/06/2020 REASON FOR ADMISSION: Acute appendicitis. HISTORY: This obese, BMI of 37.5, 45-year-old white woman presented to the emergency room where she was evaluated by Dr. Mujica and found to have tenderness in the right lower abdomen. CT scan confirmation of appendicitis. She is admitted for further evaluation and care. Her white count is noted to be 15.6. PAST MEDICAL HISTORY: Does include significant morbid obesity from the past having lost over 200 pounds previously, still quite obese otherwise, however. She does have hypertension, type 2 diabetes, history of stomach ulcer and "sciatica." She smokes on a daily basis. She has also had cholecystectomy in the past, tonsillectomy and oral surgery. PERTINENT PHYSICAL EXAMINATION: GENERAL: At the time of admission include an obese white woman who looks to be in moderate discomfort. HEENT: Mucous membranes were dry. Trachea midline. CHEST: Clear. HEART: Regular without murmur. ABDOMEN: Broad and obese. She had generalized tenderness throughout most dominantly in the right lower quadrant. LABORATORY DATA: White count is 15.6, hematocrit 41.6, platelets 294,000. She additionally is noted to have a 24 mm low-density nodule at the left adrenal gland consistent with adenoma. The appendix was noted to be thick-walled and dilated located in the iliac fossa without evidence of perforation. HOSPITAL COURSE: She was admitted and given fluid resuscitation, IV antibiotics, and based on her numerous allergies, given clindamycin and Flagyl. On October 04, 2020, she underwent laparoscopic appendectomy. Marked inflammation of the appendix was noted, but there was no evidence of perforation or abscess. There were adhesions in the abdomen, which required lysis given her prior history. Electronically Signed By: BLESSING ROSARIO MD 10/09/20 1244 PATIENT NAME: VERA ALCANTAR DISCHARGE SUMMARY DATE OF : 75 REPORT #: [id number] PHYSICIAN: BLESSING ROSARIO MD PCP: David Denson DO REPORT IS CONFIDENTIAL AND NOT TO BE RELEASED WITHOUT AUTHORIZATION [facility] [address] [place], [place] [address] Signed Postoperative course was somewhat delayed on the basis of her discomfort at the umbilicus and elsewhere. Though she had incisional pain, she was very reticent to taking essentially any pain medication occasionally allowing for Tylenol. By the day of discharge, she is ambulating well, tolerating a regular diet, incisional pain better controlled. Wounds are healing well. FOLLOWUP PLAN: She will return to see me in approximately 4 weeks. She will call on Wednesday for further consideration of this. As regard to the incidental finding of the left adrenal adenoma, further consideration of this may be undertaken in the future, though no small adenoma site can be observed without further intervention. DISCHARGE MEDICATIONS: Tylenol 500 mg tablets 1 to 2 p.o. q.6 hours p.r.n. pain. She will resume her usual medication which includes metoprolol extended release 25 mg p.o. daily and recent use of Silvadene cream to the abdominal area for irritated skin. DISCHARGE DIAGNOSES: 1. Acute appendicitis, status post laparoscopic appendectomy. 2. Incidental finding of 25 mm adrenal nodule, left side. 3. Morbid obesity. 4. History of significant weight loss (greater than 200 pounds). 5. Multiple allergies (penicillin, sulfa, oxycodone, aspirin, aloe vera, calamine, camphor, cephalexin, erythromycin base, insect extract, lamotrigine, ranitidine, promethazine, pramoxine, diphenhydramine and ). She will additionally follow up with Dr. David Denson, her primary provider in [place], [place]. MD JHONY Shahid/GIOVANIL /[id number] cc: David Denson DO Electronically Signed By: BLESSING ROSARIO MD 10/09/20 1244 PATIENT NAME: VERA ALCANTAR DISCHARGE SUMMARY DATE OF : 75 REPORT #: [id number] PHYSICIAN: BLESSING ROSARIO MD PCP: David Denson DO REPORT IS CONFIDENTIAL AND NOT TO BE RELEASED WITHOUT AUTHORIZATION [facility] [address] [place], [place] [address] Signed Copies: David Denson DO ~ Electronically Signed By: BLESSING ROSARIO MD 10/09/20 1244 PATIENT NAME: VERA ALCANTAR DISCHARGE SUMMARY DATE OF : 75 REPORT #: [id number] PHYSICIAN: BLESSING ROSARIO MD PCP: David Denson DO REPORT IS CONFIDENTIAL AND NOT TO BE RELEASED WITHOUT AUTHORIZATION
== END 2020-10-06 12:20 | disposition home or self-care (01) ==
LOC: ED 18:23 → MS 18:25
PROVIDERS: ADMIT Surgery; ATTEND Surgery
PROC: 0DTJ4ZZ Resection of Appendix, Percutaneous Endoscopic Approach (ICD-10-PCS; principal; 2020-10-04 12:00)
DX: K35.80 Unspecified acute appendicitis (principal); I10 Essential (primary) hypertension; E11.9 Type 2 diabetes mellitus without complications; F17.210 Nicotine dependence, cigarettes, uncomplicated; K21.9 Gastro-esophageal reflux disease without esophagitis; E66.01 Morbid (severe) obesity due to excess calories; Z68.37 Body mass index [BMI] 37.0-37.9, adult; Z20.822 Contact with and (suspected) exposure to COVID-19
CPT/HCPCS: 00790; 74177; 80053; 81001; 83690; 84703; 85025; 93005; 93010; 96375; 96376; 99285-25; G0378; J1644; J1885; J1956; J2001; J2310; J2405; J2704; J3010; J3490; J7121; Q9967; U0003